=== PATIENT | female | born 1970 | race Caucasian/White ===

== ENCOUNTER 2022-11-20 14:03 | Outpatient (CLI) | payer BC, SELFPAY ==
--- NOTE | 2022-11-20 14:11 | XRR_ITS ---
PROCEDURE INFORMATION: Exam: XR Cervical Spine Exam date and time: 11/20/2022 2:25 PM Age: 52 years old Clinical indication: Neck pain; Additional info: Chronic neck pain TECHNIQUE: Imaging protocol: Radiologic exam of the cervical spine. Views: 2 or 3 views. COMPARISON: No relevant prior studies available. FINDINGS: Bones/joints: There are spondylitic changes C5-C6 with some degenerative disc space narrowing and posterior endplate osteophytic lipping. Remaining disc heights are maintained. There is no fracture, subluxation or significant malalignment. Soft tissues: Unremarkable. XR/XR cervical spine 3V* [id number] IMPRESSION: Degenerative changes with mild spondylosis C5-C6.
== END 2022-11-20 14:04 | disposition home or self-care (01) ==
LOC: RAD 14:04
PROVIDERS: Visit Provider Family Medicine
DX: M47.812 Spondylosis without myelopathy or radiculopathy, cervical region (principal); G89.29 Other chronic pain
CPT/HCPCS: 72040

== ENCOUNTER 2023-01-24 13:31 | Outpatient (CLI) | payer BC, SELFPAY ==
--- NOTE | 2023-01-24 13:50 | MM_ITS ---
WS: [id number] BILATERAL 3D TOMOSYNTHESIS DIGITAL SCREENING MAMMOGRAPHY WITH CAD CLINICAL INFORMATION: screening mammogram HISTORY: Screening mammogram. No current complaints. COMPARISON: March 07, 2022 TECHNIQUE: Bilateral CC and MLO views. FINDINGS: The breasts are composed of heterogeneous fibroglandular density tissue, which can limit the detectio n of small underlying mass lesions. No suspicious mass, asymmetry, calcifications, or architectural d istortion. No evidence of malignancy. MM/[place] [id number] IMPRESSION: BI-RADS: 1-Negative FOLLOW UP: 1 Year Follow-up Recommend return to annual screening mammography.
== END 2023-01-24 13:32 | disposition home or self-care (01) ==
LOC: RAD 13:35
PROVIDERS: Visit Provider Family Medicine
DX: Z12.31 Encounter for screening mammogram for malignant neoplasm of breast (principal); Z13.6 Encounter for screening for cardiovascular disorders
CPT/HCPCS: 77063; 77067; 80053; 80061; 85025; 87426

== ENCOUNTER 2023-09-26 15:00 | Outpatient (CLI) | payer BC, SELFPAY ==
--- NOTE | 2023-09-26 15:15 | MR_ITS ---
WS: [id number] MRI BRAIN WITHOUT AND WITH CONTRAST, ATTENTION DIRECTED TO THE PITUITARY GLAND HISTORY: pituitary adenoma COMPARISON: None available. TECHNIQUE: Diffusion-weighted imaging, axial T2 sequence, and postcontrast images in 3 planes are per formed. High-resolution coronal and sagittal imaging performed through the pituitary region with and without intravenous gadolinium. MultiHance 14 mL IV. Normal diffusion imaging. No ischemia. Very mild bilateral symmetric cerebral atrophy. No prior infar cts. Mild small vessel ischemic disease in the periventricular white matter. No hemorrhage. Normal si ze ventricles. There is very slight ectopia of the cerebellar tonsils. Well-circumscribed cystic mass in the region of the pineal gland. Mass measures 2.1 cm transversely b y 1.8 cm anterior posterior by 1.3 cm superior-inferior. There is slight mass effect upon the tectal plate. This mass is centered just posterior to the third ventricle consistent with a pineal cyst. T1 low signal with T2 increased signal. There is very mild peripheral enhancement but no nodularity. No hemorrhage. Sella turcica: Normal appearance of the pituitary gland. Superior-inferior diameter of 5 mm. No mass is identified within the pituitary gland of any significance. There is no deviation of the optic vitaliy sm or the infundibulum. No encasement of the carotid arteries or cavernous sinuses. No mass identified otherwise within the brain. Dural venous sinuses normally enhance. No abnormality identified at the [place]. IMPRESSION: 1. 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 Slight mass effect upon the tectal plate and no hemorrhage. No prior studies for comparison. Suggest yearly MRI evaluation to ensure no enlargement. If the patient is symptomatic surgical evaluation should be considered. 2. No pituitary mass or abnormal enhancement identified. 3. Very mild cerebral atrophy and small vessel ischemic disease. 4. If there are prior imaging studies that described a pineal cyst or pituitary adenoma these are not available at [facility]. If these become available an addendum can be submitted.
[2023-09-26] MEDS: gadobenate dimeglumine 20 mL vial IV (15:56)
== END 2023-09-26 15:01 | disposition home or self-care (01) ==
LOC: RAD 15:01
PROVIDERS: Visit Provider Family Medicine
DX: D35.2 Benign neoplasm of pituitary gland (principal); G93.0 Cerebral cysts
CPT/HCPCS: 70553; A9577

== ENCOUNTER 2024-02-07 09:31 | Outpatient (CLI) | payer BC, SELFPAY ==
--- NOTE | 2024-02-07 09:30 | MM_ITS ---
WS: [id number] BILATERAL SCREENING DIGITAL TOMOSYNTHESIS MAMMOGRAM WITH CAD HISTORY: SCREENING COMPARISON: 01/24/2023, 03/07/2022 Bilateral CC and MLO views with tomosynthesis and synthetic mammography submitted. Computer aided det ection analyzed. Breast composition: The breasts are heterogeneously dense, which may obscure small masses. No suspici ous masses, microcalcifications or architectural distortion. IMPRESSION: MM/[place] [id number] BI-RADS: 1-Negative FOLLOW UP: 1 Year Follow-up
== END 2024-02-07 09:32 | disposition home or self-care (01) ==
LOC: MOBLMAM 09:37
PROVIDERS: PCP Family Medicine; Visit Provider Family Medicine
DX: Z12.31 Encounter for screening mammogram for malignant neoplasm of breast (principal)
CPT/HCPCS: 77063; 77067

== ENCOUNTER → 2024-02-25 10:58 | Outpatient (BNVA) | payer BC, SELFPAY | PROVIDERS: PCP Family Medicine; Visit Provider Family Medicine | DX: Z13.6 Encounter for screening for cardiovascular disorders (principal) | CPT/HCPCS: 80053; 80061; 85025 ==

== ENCOUNTER → 2024-11-10 09:55 | Outpatient (BNVA) | payer BC, SELFPAY | PROVIDERS: PCP Family Medicine; Visit Provider Family Medicine | DX: E34.8 Other specified endocrine disorders | CPT/HCPCS: 83001; 83002; 84146; 84443 ==

== ENCOUNTER 2024-11-25 14:21 | Outpatient (CLI) | payer BC, SELFPAY ==
--- NOTE | 2024-11-25 15:15 | MR_ITS ---
WS: [id number] MRI BRAIN WITHOUT AND WITH CONTRAST, ATTENTION DIRECTED TO THE PITUITARY GLAND HISTORY: pineal gland cyst COMPARISON: 09/26/2023 TECHNIQUE: Diffusion-weighted imaging, axial T2 sequence, and postcontrast images in 3 planes are per formed. High-resolution coronal and sagittal imaging performed through the pituitary region with and without intravenous gadolinium. Reidentified is the well-circumscribed cystic mass in the region of the pineal gland with minimal per ipheral enhancement. No nodularity. No hemorrhage. Pineal cyst measures 2.2 x 1.7 x 1.4 cm with no in crease in size. There is slight mass effect upon the tectal plate but similar to the prior study. Normal appearance of the pituitary gland. No mass or signal abnormality is identified. No deviation o f the infundibulum or optic chiasm. No soft tissue encasement or enhancement of the carotid arteries. Normal diffusion imaging. No acute or prior large territory infarct. Mild cerebral atrophy is stable. Minimal small vessel disease in the periventricular white matter. No hemorrhage. Reidentified is derek y slight ectopia of the cerebellar tonsils but no Chiari malformation. Normal sized ventricles. No ma ss or signal abnormality at the cerebellopontine fossa. Small amount of mucoperiosteal thickening in the LEFT maxillary sinus. No air-fluid levels. Mastoid a ir cells are clear. Normal calvarium. MR/MR pituitary wo/w con* [id number] IMPRESSION: 1. 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 No significant incre ase in size. Mild mass effect upon the tectal plate with no hemorrhage or enhan cement. Suggest yearly MRI evaluation. If patient is symptomatic surgical evalu ation should be obtained. 2. No pituitary mass. 3. No acute infarct. 4. Mild cerebral atrophy and mild small vessel disease, stable.
[2024-11-25] MEDS: gadobenate dimeglumine 20 mL vial IV (15:21)
== END 2024-11-25 14:22 | disposition home or self-care (01) ==
LOC: RAD 14:24
PROVIDERS: PCP Family Medicine; Visit Provider Family Medicine
DX: E34.8 Other specified endocrine disorders (principal); G93.0 Cerebral cysts; G31.9 Degenerative disease of nervous system, unspecified; R93.89 Abnormal findings on diagnostic imaging of other specified body structures
CPT/HCPCS: 70553

== ENCOUNTER → 2025-01-05 10:37 | Outpatient (BNVA) | payer BC, SELFPAY | PROVIDERS: PCP Family Medicine; Visit Provider Family Medicine | DX: D48.5 Neoplasm of uncertain behavior of skin (principal) | CPT/HCPCS: 88305 ==

== ENCOUNTER 2025-04-02 10:16 | Outpatient (CLI) | payer BC, SELFPAY ==
--- NOTE | 2025-04-02 10:20 | MM_ITS ---
WS: [id number] SCREENING DIGITAL TOMOSYNTHESIS MAMMOGRAM WITH CAD HISTORY: screening COMPARISON: 02/07/2024, 01/24/2023, 03/07/2022 Bilateral CC and MLO with tomosynthesis views submitted. Synthetic mammography reviewed. Computer aided detection analyzed. Breast composition: The breasts are heterogeneously dense, which may obscure small masses. No suspicious masses, microcalcifications or architectural distortion. MM/MM scr BI tomosynthesis [id number] IMPRESSION: BI-RADS: 1 - Negative FOLLOW UP: 1 Year Follow-up
== END 2025-04-02 10:17 | disposition home or self-care (01) ==
PROVIDERS: PCP Electrodiagnostic Medicine; Visit Provider Electrodiagnostic Medicine
DX: Z12.31 Encounter for screening mammogram for malignant neoplasm of breast (principal); R92.333 Mammographic heterogeneous density, bilateral breasts
CPT/HCPCS: 77063; 77067